=== PATIENT | male | born 1985 | race Caucasian/White ===

== ENCOUNTER 2021-06-05 06:12 | Emergency (ER) | payer OTHER ==
[2021-06-05] MEDS ORDERED: BABY ASPIRIN 81 MG CHEW PO ONE (06:25)
[2021-06-05] MEDS ORDERED: BRILINTA PO ONE (06:26)
[2021-06-05] MEDS ORDERED: Heparin 5000 UNITS/0.5 ML (HIGH RISK MED) IV ONE (06:26)
[2021-06-05] MEDS ORDERED: Heparin 5000 UNITS/0.5 ML (HIGH RISK MED) ONE (06:30)
[2021-06-05] MEDS ORDERED: PLAVIX 75 MG Tablet PO ONE (06:36)
[2021-06-05] MEDS ORDERED: PLAVIX 75 MG Tablet ONE (06:37)
[2021-06-05 06:49] VITALS: BP 155/98; O2SAT 100
[2021-06-05 06:52] LABS: Hematocrit 46.5 % (42-50); Hemoglobin 16.3 gm/dl (12.5-18.0); Mean Cell Volume 95.9 fl (78-100); Mean Corpuscular Hemoglobin 33.6 pg (26-32); Mean Corpuscular Hgb Concent. 35.1 g/dl (32-36); Mean Platelet Volume 10.3 fl (7.5-11.0); Platelet Count 324 K/mm3 (150-450); Red Blood Count 4.85 M/mm3 (4.1-5.6); Red Cell Distribution Width 13.6 % (11.5-14.0)
[2021-06-05 06:53] LABS: INR 1.08 (0.8-3.0); PROTIME 12.7 SECONDS (9.4-12.5)
[2021-06-05 06:54] LABS: White Blood Count 30.4 K/mm3 (4.0-10.5)
[2021-06-05 06:56] LABS: PTT 30.2 SECONDS (25.1-36.5)
--- NOTE | 2021-06-05 06:57 | ERPHSYRPT ---
- History of Present Illness Historian: patient Exam Limitations: no limitations Patient Subjective Stated Complaint: Patient c/o chest pain that started 20 minutes prior to heading towards ED. Patient lives approx 20 minutes from ED. Pain is in center of chest and radiates to his left arm. Pain is a "tight, squeezing" pain. Triage Nursing Assessment: Patient ambulated back to ED. Patient alert and oriented and answering questions appropriately. Patient visibly anxious. States, "I hate hospital and needles, they make me nervous." Physician History: 35 yo wm w mid-sternal chest pain x1hr. Pain is 6/10 and accompanied by N/Diaphoresis. He denied vomiting/dyspnea. Pain does not radiate. He smokes 1ppd but denies HTN/DM/hyperlipidemia/meth-cocaine use/ho ME. Timing/Duration: other (1hr) Activities at Onset: rest Quality: pressure Location: substernal Chest Pain Radiation: no radiation Severity of Pain-Max: moderate Severity of Pain-Current: moderate Modifying Factors: Worsens With: antacids, breathing, coughing, defecating, eating, exertion, lying down, morphine, movement, nitroglycerin, oxygen, palpation, rest, aspirin, sitting up, change in position Associated Symptoms: nausea, diaphoresis, No vomiting, No palpitations, No heartburn, No abdominal pain, No shortness of breath, No cough, No hurts to breathe, No chills, No fever, No fatigue, No weakness, No swelling/lump in chest, No syncope, No rash, No headache, No dizziness, No edema, No back pain Prior Chest Pain/Cardiac Workup: no prior chest pain Nitro Today/Relief: no nitro taken today Aspirin Treatment Today: no aspirin today Allergies/Adverse Reactions: No Known Drug Allergies Allergy (Verified 06/05/21 06:51) Home Medications: No Reportable Medications [No Reported Medications] 06/05/21 [History] Travel Risk - International Travel Have you traveled outside of the country in past 3 weeks: No - Coronavirus Screening Are you exhibiting any of the following symptoms?: No Close contact with a COVID-19 positive Pt in past 14-21 Days: No - Vaccine Status Have you recieved a Covid-19 vaccination: No (unknown) - Review of Systems Constitutional: No Symptoms Eyes: No Symptoms Ears, Nose, & Throat: No Symptoms Respiratory: No Symptoms Cardiac: No Symptoms, Chest Pain Abdominal/Gastrointestinal: No Symptoms, Nausea Genitourinary Symptoms: No Symptoms Musculoskeletal: No Symptoms Skin: No Symptoms Neurological: No Symptoms Psychological: No Symptoms Endocrine: No Symptoms Hematologic/Lymphatic: No Symptoms - Past Medical History Pertinent Past Medical History: No - Past Surgical History Past Surgical History: No Other Surgical History: Unable to obtain surgical history prior to transfer - Social History Smoking Status: Current every day smoker How long have you smoked: 15 Drug Use: none Significant Family History: no pertinent family hx - Nursing Vital Signs Nursing Vital Signs: Initial Vital Signs Temperature 98 F 06/05/21 06:16 Pulse Rate 69 06/05/21 06:16 Respiratory Rate 20 06/05/21 06:16 Blood Pressure 155/98 06/05/21 06:16 O2 Sat by Pulse Oximetry 100 06/05/21 06:16 Pain Scale Pain Intensity 6 Hypertensive - Physical Exam General Appearance: mild distress Eye Exam: PERRL/EOMI, eyes nml inspection Ears, Nose, Throat Exam: normal ENT inspection, TMs normal, pharynx normal, moist mucous membranes Neck Exam: normal inspection, non-tender, supple, full range of motion, No meningismus, No mass, No Brudzinski, No Kernig's Respiratory Exam: normal breath sounds, lungs clear, airway intact Cardiovascular Exam: regular rate/rhythm, normal peripheral pulses, capillary refill <2 sec, No murmur Gastrointestinal/Abdomen Exam: soft, normal bowel sounds, No tenderness Back Exam: normal inspection, normal range of motion, No CVA tenderness, No vertebral tenderness Extremity Exam: normal inspection, normal range of motion Neurologic Exam: alert, oriented x 3, cooperative, catalytic case operator II-XII nml as tested, normal mood/affect, nml cerebellar function, nml station & gait, sensation nml Skin Exam: normal color, warm, dry Lymphatic Exam: No adenopathy SpO2 Interpretation: normal SpO2: 100 O2 Delivery: Room Air - Course EKG Interpreted by Me: RATE (#1NSR/Rate 75/Inferior ST elevation/Tall T waves /Normal QT-QTc/EKG#2NSR/Rate75/Inferior ST elevation/Tall Twaves/Normal QT-QTc) Ordered Tests: Active Orders 24 hr Category Date Time Status CBC W DIFF Stat Lab 06/05/21 06:27 Ordered CMP Stat Lab 06/05/21 06:27 Ordered NT PRO BNP Stat Lab 06/05/21 06:27 Ordered PROTIME WITH INR Stat Lab 06/05/21 06:27 Ordered PTT Stat Lab 06/05/21 06:27 Ordered TROPONIN Q3H Lab 06/05/21 06:30 Ordered TROPONIN Q3H Lab 06/05/21 09:30 Ordered TROPONIN Q3H Lab 06/05/21 12:30 Ordered TROPONIN Q3H Lab 06/05/21 15:30 Ordered TROPONIN Q3H Lab 06/05/21 18:30 Ordered Medication Summary Discontinued Medications Generic Name Dose Route Start Last Admin Trade Name Poloq PRN Reason Stop Dose Admin Aspirin 324 mg 06/05/21 06:25 06/05/21 06:31 Aspirin 81 Mg Tab.Chew PO 06/05/21 06:26 324 mg STAT ONE Administration Clopidogrel Bisulfate 300 mg 06/05/21 06:36 Clopidogrel Bisulfate 75 Mg Tablet PO 06/05/21 06:37 STAT ONE Clopidogrel Bisulfate Confirm 06/05/21 06:37 Clopidogrel Bisulfate 75 Mg Tablet Administered 06/05/21 06:38 Dose 300 mg .ROUTE .STK-MED ONE Heparin Sodium (Beef Lung) 5,000 unit 06/05/21 06:26 06/05/21 06:30 Heparin 5000 Unit/0.5 Ml Syringe IV 06/05/21 06:27 5,000 unit STAT ONE Administration Heparin Sodium (Beef Lung) Confirm 06/05/21 06:30 Heparin 5000 Unit/0.5 Ml Syringe Administered 06/05/21 06:31 Dose 5,000 unit .ROUTE .STK-MED ONE Ticagrelor 180 mg 06/05/21 06:26 Ticagrelor 90 Mg Tablet PO 06/05/21 06:27 STAT ONE - Progress Progress Note: 06/05/21 06:59 ASA 324 po chewable Plavix 300mg po Heparin 5000u IV NTG SL x1 Pt accepted by Dr. Yanez at [facility] Counseled pt/family regarding: diagnosis - Departure Departure Disposition: Transfer Clinical Impression: Inferior ME Condition: Stable Critical Care Time: Yes Critical Care Time(excluding separately billable procedures): Critical 30-74 mins
[2021-06-05 07:07] LABS: ALBUMIN 4.9 g/dL (3.5-5.0); ALKALINE PHOSPHATASE 79 U/L (38-126); BLOOD UREA NITROGEN 10 mg/dL (9-20); CHLORIDE 107 mmol/L (98-107); Calcium 9.8 mg/dL (8.4-10.2); Carbon Dioxide 23 mmol/L (22-30); Creatinine 1 0.65 mg/dL (0.66-1.25); EST GLOMERULAR FILTRATION RATE > 60.0 ML/MIN; Glucose 137 mg/dL (74-106); NT PRO BNP 35.3 pg/mL (0-450); Potassium 3.8 mmol/L (3.5-5.1); SGOT/AST 21 U/L (17-59); SGPT/ALT 19 U/L (0-50); SODIUM 141 mmol/L (137-145); Total Protein 7.6 g/dL (6.3-8.2)
[2021-06-05 07:11] VITALS: PULSE 75
[2021-06-05 08:08] LABS: BAND 3 % (0.0-2.0); Lymphocytes 7 % (24-44); Monocyte 3 % (0.0-12.0); Neutrophils 87 % (36.-66.); Platelet Estimate NORMAL (NORMAL); Total Cells Counted 100; Toxic Granulation 1+
[2021-06-05 08:09] LABS: ANISOCYTOSIS 1+
== END 2021-06-05 06:52 | disposition short-term general hospital (02) ==
LOC: ED 06:12
DX: I21.19 ST elevation (STEMI) myocardial infarction involving other coronary artery of inferior wall (principal); Z72.0 Tobacco use; R07.9 Chest pain, unspecified; R11.0 Nausea
CPT/HCPCS: 36000; 36415; 80053; 83880; 84484; 85025; 85610; 85730; 93005; 96374; 99285; 99291; J1644; A9270-GY